=== PATIENT | male | born 1950 | race African-American/Black ===

== ENCOUNTER 2024-10-17 19:57 | Emergency (ER) | payer MEDICARE, OTHER ==
[~2024-10-17] VITALS: Ht 180.3 cm; Wt 83.0 kg
[2024-10-17 20:03] VITALS: O2SAT 99
[2024-10-17] MEDS ORDERED: HYDR-4001 MT (20:48)
[2024-10-17] MEDS ORDERED: IBUP-2028 MT (20:48)
[2024-10-17] MEDS ORDERED: NALO4SPR BOTHNSTRLS (20:48)
[2024-10-17] MEDS: KETOROLAC 30MG/ML VIAL IM ONE (21:16)
[2024-10-17] MEDS: ONDANSETRON 4MG ODT PO ONE (21:16)
[2024-10-17] MEDS: HYDROCODONE/ACETAMINOPHEN 5/325MG TABLET PO ONE (21:17)
[2024-10-17 21:30] VITALS: BP 134/96; PULSE 102; RESP 18; TEMP 37; O2SAT 99
== END 2024-10-17 21:32 | disposition home or self-care (01) ==
LOC: ER 19:57
DX: E78.00 Pure hypercholesterolemia, unspecified (principal); I10 Essential (primary) hypertension; S42.202A Unspecified fracture of upper end of left humerus, initial encounter for closed fracture; W01.0XXA Fall on same level from slipping, tripping and stumbling without subsequent striking against object, initial encounter; Y93.K1 Activity, walking an animal; Y92.89 Other specified places as the place of occurrence of the external cause; Y99.8 Other external cause status
CPT/HCPCS: 99283; 73030; 96372; J1885; Q0162; L3670